=== PATIENT | male | born 2000 | race Caucasian/White ===

== ENCOUNTER 2018-07-08 18:10 | Emergency (ER) | payer OTHER ==
[~2018-07-08] VITALS: Ht 177.8 cm; Wt 56.7 kg
[2018-07-08 18:14] VITALS: BP 136/75
[2018-07-08] MEDS ORDERED: PREDNISONE 10 M10 MG PO (18:42)
[2018-07-08] MEDS ORDERED: VISTARIL 25 MG25 M1 PO (18:42)
[2018-07-08] MEDS ORDERED: TRIAMCINOLONE A80 G2 TOP (18:42)
[2018-07-08] MEDS ORDERED: HYDROXYZINE HCL25 M1 PO (18:43)
== END 2018-07-08 18:54 | disposition home or self-care (01) ==
LOC: M.ERS 18:10
DX: L25.5 Unspecified contact dermatitis due to plants, except food (principal)

== ENCOUNTER 2018-08-31 22:17 | Emergency (ER) | payer OTHER ==
[~2018-08-31] VITALS: Ht 177.8 cm; Wt 59.0 kg
[~2018-08-31 22:17] MED LIST: HYDROXYZINE HCL25 M1 PO; PREDNISONE 10 M10 MG PO; TRIAMCINOLONE A80 G2 TOP; VISTARIL 25 MG25 M1 PO
[2018-08-31 22:37] VITALS: BP 135/75
[2018-08-31] MEDS ORDERED: AZITHROMYCIN 2250 MG PO (22:48)
[2018-08-31] MEDS ORDERED: SUPRAX400 M1 PO (22:48)
== END 2018-08-31 23:04 | disposition home or self-care (01) ==
LOC: M.ERS 22:17
DX: Z20.2 Contact with and (suspected) exposure to infections with a predominantly sexual mode of transmission (principal)